=== PATIENT | female | born 2000 | race Hispanic/Latino ===

== ENCOUNTER 2019-05-29 21:21 | Emergency (ER) | payer MEDICAID | END 2019-05-29 22:25 | disposition home or self-care (01) | LOC: EDH 21:21 | DX: F41.1 Generalized anxiety disorder (principal); J45.909 Unspecified asthma, uncomplicated ==

== ENCOUNTER 2022-08-16 05:40 | Day surgery (SDC) | payer MEDICARE ==
[~2022-08-16] VITALS: Ht 157.5 cm; Wt 73.0 kg
[2022-08-16] VITALS (21 sets, daily range): BP systolic 104–128; BP diastolic 52–89
[2022-08-16] MEDS ORDERED: BUPIVACAINE/PF 0.5% 30ML VIAL ONE (06:51)
[2022-08-16 06:58] LABS: HEMATOCRIT 37.2 % (36-48); MEAN CORPUSCULAR HEMOGLOBIN 30.6 pg (27.0-33.0); MEAN CORPUSCULAR HGB CONC 32.5 g/dL (32.0-36.0); MEAN CORPUSCULAR VOLUME 93.9 fL (79-99); PLATELET COUNT (AUTO) 276 K/uL (130-400); RED BLOOD CELL COUNT(AUTO) 3.96 MIL/uL (4.00-5.50); RED CELL DISTRIBUTION WIDTH 13.8 % (11.0-15.5); WHITE BLOOD COUNT (AUTO) 9.3 K/uL (4.8-10.8)
[2022-08-16] MEDS ORDERED: LACTATED RINGERS 1000ML 1,000 ML IV ONE (07:02)
[2022-08-16 07:08] LABS: CREATININE 0.6 mg/dL (0.5-1.5); POTASSIUM 3.4 mmol/L (3.5-5.1)
[2022-08-16 07:15] LABS: INR 0.93 (0.85-1.15)
[2022-08-16 07:16] LABS: PARTIAL THROMBOPLASTIN TIME 26.4 SEC (26.3-35.5)
[2022-08-16 07:23] LABS: BASOPHILS % (MANUAL) 1 % (0-2); EOSINOPHILS % (MANUAL) 3 % (1-6); LYMPHOCYTES % (MANUAL) 48 % (22-44); MAN.DIFF COMMENT-IMPRESSION MANUAL DIFFERENTIAL; MONOCYTES % (MANUAL) 7 % (2-9); PLATELET MORPHOLOGY COMMENT ADEQUATE; SEGMENTED NEUTROPHILS % 41 % (40-70)
[2022-08-16] MEDS ORDERED: 0.9%NACL 1000ML 1,000 ML IV SCH (08:00)
[2022-08-16] MEDS ORDERED: CEFAZOLIN SODIUM 1 GM VIAL IVP ONE (08:00)
[2022-08-16] MEDS ORDERED: SUCCINYLCHOLINE 200MG/10ML SYR ONE (08:01)
[2022-08-16] MEDS ORDERED: PROPOFOL 10 MG/ML 20ML VIAL IV ONE ×2 (08:01→09:16)
[2022-08-16] MEDS ORDERED: ROCURONIUM 10MG/1ML SYR 10 MG/ML ML ONE (08:01)
[2022-08-16] MEDS ORDERED: FENTANYL CITRATE PF 50 MCG/1 ML 2ML VIAL ONE (08:02)
[2022-08-16] MEDS ORDERED: CEFAZOLIN SODIUM 2 GM VIAL IV ONE (08:25)
[2022-08-16] MEDS ORDERED: BUPIVACAINE/PF 0.5% 30ML VIAL INJ ONE (09:48)
[2022-08-16] MEDS ORDERED: KETOROLAC 30MG VIAL (30MG/ML) ONE (10:31)
[2022-08-16] MEDS ORDERED: ONDANSETRON 4MG INJ ONE (10:32)
== END 2022-08-16 12:50 | disposition home or self-care (01) ==
LOC: DAH 05:40
PROVIDERS: ATTEND Surgery
DX: K80.64 Calculus of gallbladder and bile duct with chronic cholecystitis without obstruction (principal); K82.8 Other specified diseases of gallbladder; Z79.01 Long term (current) use of anticoagulants; Z98.890 Other specified postprocedural states; Z98.891 History of uterine scar from previous surgery; Z90.49 Acquired absence of other specified parts of digestive tract; K80.51 Calculus of bile duct without cholangitis or cholecystitis with obstruction
CPT/HCPCS: 80048; 84703; 85025; 85610; 85730; 36415; 87635; 47562; A4221; A4663; J7030; J0690 ×2; J7120; J3010; J0330; J2704 ×2; J2405; J1885; J3490 ×2; G0168; C1769 ×3; A4649 ×4; A4930; A4215 ×2; A4223; A4222; A4600